=== PATIENT | female | born 1975 | race African-American/Black ===

== ENCOUNTER 2020-06-14 12:20 | Outpatient (CLI) | payer OTHER | END 2020-06-14 12:21 | disposition home or self-care (01) | LOC: CSHMAMMO 12:20 | PROVIDERS: ATTEND Family Medicine | DX: Z12.31 Encounter for screening mammogram for malignant neoplasm of breast (principal) | CPT/HCPCS: 77067 ==

== ENCOUNTER 2021-01-23 13:25 | Outpatient (CLI) | payer OTHER | END 2021-01-23 13:26 | disposition home or self-care (01) | LOC: CSHCT 13:25 | PROVIDERS: ATTEND Physician Assistant Medical | DX: R19.7 Diarrhea, unspecified (principal); R10.84 Generalized abdominal pain; R11.0 Nausea; M89.9 Disorder of bone, unspecified | CPT/HCPCS: 74177 ==

== ENCOUNTER 2021-08-12 08:12 | Outpatient (CLI) | payer BC | END 2021-08-12 08:13 | disposition home or self-care (01) | LOC: CSHMAMMO 08:12 | PROVIDERS: ATTEND Family Medicine | DX: Z12.31 Encounter for screening mammogram for malignant neoplasm of breast (principal); Z80.3 Family history of malignant neoplasm of breast | CPT/HCPCS: 77063; 77067 ==

== ENCOUNTER 2022-09-09 13:15 | Outpatient (CLI) | payer BC | END 2022-09-09 13:16 | disposition home or self-care (01) | LOC: CSHMAMMO 13:15 | PROVIDERS: ATTEND Family Medicine | DX: Z12.31 Encounter for screening mammogram for malignant neoplasm of breast (principal); Z80.3 Family history of malignant neoplasm of breast | CPT/HCPCS: 77063; 77067 ==

== ENCOUNTER 2024-09-21 12:39 | Outpatient (CLI) | payer BC, OTHER | END 2024-09-21 12:40 | disposition home or self-care (01) | LOC: CSHMAMMO 12:39 | PROVIDERS: ATTEND Obstetrics & Gynecology | DX: Z12.31 Encounter for screening mammogram for malignant neoplasm of breast (principal); Z80.3 Family history of malignant neoplasm of breast | CPT/HCPCS: 77063; 77067 ==

== ENCOUNTER 2024-11-22 08:00 | Outpatient (CLI) | payer OTHER | END 2024-11-22 12:30 | disposition home or self-care (01) | LOC: CSHMAMMO 08:00 | PROVIDERS: ATTEND Family Medicine | DX: N63.0 Unspecified lump in unspecified breast (principal) | CPT/HCPCS: G0279 ==